=== PATIENT | male | born 1945 | race Caucasian/White ===

== ENCOUNTER 2024-12-01 21:39 | Emergency (ER) | payer OTHER, MEDICARE ==
[~2024-12-01] VITALS: Ht 175.3 cm; Wt 81.8 kg
[2024-12-01 21:51] VITALS: BP 142/62; PULSE 83; RESP 20; TEMP 98.3; O2SAT 97
--- NOTE | 2024-12-01 23:16 | Physician Documentation ---
History of Present Illness ~ Chief Complaint: Foot pain Stated Complaint: FOOT PAIN Time Seen by MD: 23:09 OK to notify your PCP?: Yes Source: patient Mode of Arrival: POV Exam Limitations: no limitations HPI 79-year-old male with left greater toe pain, warmth, swelling that he noticed 2 days ago. He does not remember any injury to the toe but noticed he had what he thought was a corn on the site of his toe so we put some corn ointment on which then subsequently opened up. He does wear open toed sandals and has been outside on their property. The redness started in the toe at the site of the wound and what is spreading up the toe. He does have pain in the MTP and was wondering if this could be gout. Good pulses in foot, good CSM, limited range of motion in the toe. Medication Reconciliation Allergies: Coded Allergies: No Known Allergies (Unverified , 12/01/24) Scheduled Cephalexin*Monohydrate* (Keflex*), 1 CAP PO Q8H Review of Systems All Other Systems at this time: Reviewed and Negative Physical Exam Vital Signs: RN Vital Signs have been reviewed: Yes, Temperature: 98.3, Source: Temporal, Heart Rate: 83, Respiratory Rate: 20, BP: 142/62, Pulse Oximetry: 97, Weight: 81.810 Oxygen Flow Rate: 0 Pulse Oximetry Reflects: adequate oxygenation Physical Exam General: Alert, no apparent distress. HEENT: PERRL, EOMI, no injection, moist mucous membranes. Neck: Full range of motion. Respiratory: Lungs clear, no respiratory distress. Chest: No accessory muscle use. Cardiovascular: Regular rate and rhythm, no murmurs. Gastrointestinal: Soft, nontender, nondistended. Bowels sounds present. Extremities: Decreased range of motion in left greater toe. Edema, erythema, warmth to toe with small open ulceration to the medial aspect of the left greater toe. Decreased range of motion in toto to pain. Redness along 1st metacarpal. Neurologic: Oriented x4. Psychiatric: Normal mood and affect. Skin: Normal color, warm and dry. No edema, no ecchymosis. Progress Results/Orders Reviewed/noted all lab results: Yes Results/Orders Orders - SOL YOON VP LAB Toe(S) (12/01/24 23:10) Completed Orders - SOL YOON VP LAB Toe(S) (12/01/24 23:10) Cephalexin Capsule (Keflex Capsule) (12/01/24 23:20) Vital Signs 12/01/24 21:51 Temp 98.3 Pulse 83 Resp 20 B/P (MAP) 142/62 Pulse Ox 97 O2 Flow Rate 0 EKG/XRAY/CT/US/VASC/MRI Bone/Soft Tissue X-Ray (Ext.) : Additional Comment left toes x-ray as interpreted by me; no joint effusion, no acute fracture, no soft tissue swelling, no dislocation, or foreign body. Medical Decision Making Additional info obtained from: old records Findings 79-year-old male with a wound to the left toe with spreading redness, warmth and edema for the past 2 days. He states that the swelling started at the point of open ulceration and has been spreading up the foot. He does have limited range motion in the MTP and is worried about gout. He has never had gout and does not diabetic. Has limited range of motion in that toe due to pain. Good CSM and good pulses in the foot. I ordered a toe x-ray to rule out septic arthritis, joint effusion or findings consistent with gout. Left toe x-ray showed: no joint effusion, no acute fracture, no soft tissue swelling, no dislocation, or foreign body. This is likely cellulitis stemming from the open ulceration to the medial aspect of the 1st greater toe. The redness is spreading from the site and going upwards toward the foot. I have given a first-time dose of Keflex while here in the department and a prescription for Keflex was sent to his pharmacy. He should see his primary care provider in the next 3 days and return back here for any new or worsening symptoms. General Diff Dx:Considerations: Include: Abrasion, Contusion, Fracture, Hematoma, Neurovascular injury, Open fracture, Sprain Toe Diff Dx:Considerations: Include: Dislocation Departure Disposition: 01 HOME / SELF CARE / HOMELESS Impression: Primary Impression: Cellulitis Condition: Stable Discharge Instructions: Cellulitis Additional Instructions: Please take all antibiotics as prescribed. Follow up with her primary care provider in the next 3 days and return back here for any new or worsening symptoms. Referrals: NO PRIMARY CARE PROVIDER (PCP) Prescriptions Cephalexin*Monohydrate* (Keflex*) 500 Mg Capsule 1 CAP PO Q8H for 10 Days, #30 CAP Prov: SOL YOON 12/01/24 Education Educated: Patient, Family Educated regarding: diagnosis, treatment, prognosis, need for follow up Additional Comment Medical Screen Exam This patient recieved a medical screening examination. After reviewing the individual's medical complaints with presenting symptoms and performing an appropriate physical examination, it was determined that no emergency medical condition is present. This individual is also not a women having contractions. Signature Scribe Signature: No scribe Attestation: Scribed for Sol Yoon by Sol Lloyd NP . 12/02/24 00:11 SOL YOON December 01, 2024 23:16
[2024-12-01] MEDS ORDERED: CEPH-585 PO (23:19)
--- NOTE | 2024-12-02 00:03 | RADIOLOGY REPORT ---
CLINICAL INDICATION: left toe pain, warmth and swelling TECHNIQUE: DI TOE(S) Comparison: None FINDINGS / IMPRESSION: No osseous abnormality identified with no fracture or destructive changes. Joint spaces are with norm al limits. Mild degenerative changes in 1st MTP joint.
[2024-12-02] MEDS: cephalexin 250mg capsule PO ONE (00:36)
== END 2024-12-02 00:35 | disposition home or self-care (01) ==
LOC: ER 21:41
DX: L03.116 Cellulitis of left lower limb (principal)
CPT/HCPCS: 73660; 99283

== ENCOUNTER 2025-04-13 15:48 | Inpatient (IN) | payer OTHER, MEDICARE ==
[~2025-04-13] VITALS: Ht 170.2 cm; Wt 82.2 kg
[2025-04-13 16:22] LABS: UA COLLECTION TYPE CLN CATCH MIDSTREAM
[2025-04-13 16:28] LABS: SQUAMOUS EPITHELIAL CELL,UR FEW /LPF (FEW)
--- NOTE | 2025-04-13 16:44 | Physician Documentation ---
History of Present Illness General Chief Complaint: Blood in Urine Stated Complaint: UTI SYMPTOMS Time Seen by MD: 16:44 OK to notify your PCP?: Yes Source: patient Mode of Arrival: POV Exam Limitations: no limitations History of Present Illness Initial Comments 79-year-old male presents for constant right flank pain for the past 3 days. He has noticed having dark red blood in his urine as well as some accompanying nausea. He denies any vomiting. He is able to keep food and fluids down. He denies any diarrhea or constipation. He does not have a history of any kidney, bladder or prostate issues. reports that he used to have an elevated PSA but that has decreased on repeat testing. He denies any blood thinner use. He denies any known trauma to the right flank. He did take a oxycodone 10 mg this morning which made him drowsy but did not appear to help with the pain. Denies any history of kidney stones. History of exposure to agent orange. Medication Reconciliation Allergies: Coded Allergies: No Known Allergies (Unverified , 04/13/25) Scheduled Finasteride (PROSCAR tablet), 1 TAB PO DAILY, (Reported) Furosemide 40 MG (Lasix), 1 TAB PO DAILY, (Reported) Gabapentin (Neurontin), 1 CAP PO Q8H, (Reported) Omeprazole (Omeprazole), 1 CAP PO BID, (Reported) Oxybutynin Chloride (Oxybutynin Chloride), 1 TAB PO DAILY, (Reported) Potassium Chloride (Klor-Con), 2 TAB PO DAILY, (Reported) Scheduled PRN Pramipexole Di-Hcl (Pramipexole Dihydrochloride), 1 MG PO BID PRN for muscle spasms, (Reported) Review of Systems All Other Systems at this time: Reviewed and Negative Physical Exam Physical Exam Vital Signs: RN Vital Signs have been reviewed: Yes, Temperature: 97.6, Heart Rate: 59, Respiratory Rate: 13, BP: 109/61, Pulse Oximetry: 97, Weight: 82.200 Oxygen Flow Rate: 0 Pulse Oximetry Reflects: adequate oxygenation Physical Exam General: Alert, no apparent distress. HEENT: PERRL, EOMI, no injection, moist mucous membranes. Neck: Full range of motion. Respiratory: Lungs clear, no respiratory distress. Chest: No accessory muscle use. Cardiovascular: Regular rate and rhythm, no murmurs. Gastrointestinal: Soft, nontender, nondistended. Bowels sounds present. Back: No midline tenderness, no CVA tenderness on either side. Extremities: Normal range of motion, no deformity. Neurologic: Oriented x4. Psychiatric: Normal mood and affect. Skin: Normal color, warm and dry. No edema, no ecchymosis. Progress Progress Note 1748: Bladder scanned pt, 807 in bladder. He denies the urge to urinate but was willing to try. was able to urinate 80 mls of brawn turbid urine. Results/Orders Reviewed/noted all lab results: Yes Results/Orders Completed Orders - OHLBARON ROBBINS MD Ua W/Microscopic, Cult If Ind (04/13/25 16:09) Cult Urine + [address] (04/13/25 16:29) Vital Signs 04/13/25 04/13/25 04/13/25 04/13/25 15:56 16:40 17:00 18:08 Temp 97.6 98.8 Pulse 59 66 67 Resp 16 13 14 13 B/P (MAP) 109/61 126/65 (85) 154/80 (104) Pulse Ox 97 96 97 O2 Flow Rate 0 0 0 04/13/25 04/13/25 04/13/25 19:14 20:05 21:34 Pulse 59 68 Resp 16 16 18 B/P (MAP) 170/88 (115) 141/78 (99) Pulse Ox 96 98 O2 Flow Rate 0 Laboratory Tests Test 04/13/25 16:09 04/13/25 17:40 Urine Specimen Description Cln catch midstream Urine Color Brown Urine Clarity Turbid Urine pH Urine Specific Mackey Urine Protein Urine Glucose (UA) Urine Ketones Urine Occult Blood Urine Nitrite Urine Bilirubin Urine Urobilinogen Urine Leukocyte Esterase Urine RBC Tntc Urine WBC 10-20 H Urine Squamous Epithelial Cells Few Urine Bacteria None seen Urine Culture Indicated Indicated Volume Urine Centrifuged 2 ml Urine Comment Low volume White Blood Count 10.1 Red Blood Count 4.42 L Hemoglobin 12.9 L Hematocrit 38.6 L Mean Corpuscular Volume 87.4 Mean Corpuscular Hemoglobin 29.2 Mean Corpuscular Hemoglobin Concent 33.4 Red Cell Distribution Width 13.9 Platelet Count 269 Mean Platelet Volume 8.4 Neutrophils (%) (Auto) 82.9 H Lymphocytes (%) (Auto) 8.2 L Monocytes (%) (Auto) 7.3 Eosinophils (%) (Auto) 1.3 Basophils (%) (Auto) 0.3 Neutrophils # (Auto) 8.4 H Lymphocytes # (Auto) 0.8 L Monocytes # (Auto) 0.7 Eosinophils # (Auto) 0.1 Basophils # (Auto) 0.0 CBC Comment Sodium Level 136 Potassium Level 4.2 Chloride Level 101 Carbon Dioxide Level 29.0 Anion Gap 6 L Blood Urea Nitrogen 15 Creatinine 1.12 H Estimated GFR/1.73 m2 63 BUN/Creatinine Ratio 13.4 Glucose Level 115 H Calcium Level 8.4 L Total Bilirubin 0.3 Aspartate Amino Transf (AST/SGOT) 14 Alanine Aminotransferase (ALT/SGPT) 13 Alkaline Phosphatase 112 Total Protein 7.1 Albumin 3.1 L Globulin 4.0 Albumin/Globulin Ratio 0.8 L Lipase 21 Chemistry Comments Microbiology Date/Time Source Procedure Growth Status 04/13/25 16:29 Urine Clean Catch Midstream Urine Culture - Final MIXED TEZ ISOLATED.... Complete EKG/XRAY/CT/US/VASC/MRI CT : Impression Abdominal/pelvis CT without contrast as interpreted by me shows: No free air, bladder mass present, abnormal bladder wall thickening, enlarged prostate and large bladder. Medical Decision Making Additional info obtained from: old records, family Findings He is having severe right flank pain with blood in the urine. I have ordered a CT of abdomen and pelvis to assess for kidney stone. I have also ordered basic labs to look for any anemia, infection or kidney or liver dysfunction. I have given him Toradol for the pain as well as an IV bolus 1 L. mentions that he has had a history of having chronically low sodium levels and vitamin-B levels. His lab results reveal mild anemia, WBCs normal, sodium normal, kidney function good, and urinalysis shows-significant blood in the urine with WBCs present. They were unable to run a full urinalysis due to the bloody sample. I discussed this case with Dr. Guajardo regarding the lab and urine results and he recommends treating for UTI with keflex. Keflex ordered. I suspect that he has a urinary tract infection so I treated him with Keflex. He reports not feeling the urge to urinate. I personally did a bladder scan with an average of 807 mL in the bladder. I had him stand up to urinate with only 80 mL of urine output. Patient expresses relief of pain down to a 4/10 in his right flank after the administration of Toradol. I offered further pain medications but he declines at this time. 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 I discussed this case with Dr. Malone regarding the results of the CT and he recommends a Glover catheter with bladder irrigation. I notified the patient and his regarding the CT results and the next steps in his plan of care. I handed off the care of this patient to Dr. Malone as it was the end of my shift. Differential Diagnosis Cholelithiasis, muscle strain, kidney stone, urinary obstruction, pyelonephritis. Departure Disposition: ADMITTED INPATIENT Impression: Primary Impression: Bladder carcinoma Additional Impressions: Blood in urine Flank pain Condition: Fair Referrals: NO PRIMARY CARE PROVIDER (PCP) Additional Comment Transfer of Care: Transfer of care to Dr. Malone Medical Screen Exam This patient recieved a medical screening examination. After reviewing the individual's medical complaints with presenting symptoms and performing an appropriate physical examination, it was determined that no immediate life-threatening emergency medical condition is present. This individual is also not a women having contractions. Additional Comment Date: Apr 13, 2025 Time: 21:17 Additional note by Mani Malone, DO: I took over the care of this patient from previous physician. I reviewed any previous notes available, obtain my own history, review of systems and physical examination was performed by myself. Despite of extensive irrigation, the gentleman continues to have significant amount of hematuria. He will need to be admitted for continued bladder irrigation and nonemergent urology consultation in the morning when he is on the inpatient curtis. Plan was discussed with the the patient and the , they agree. Signature Scribe Signature: No scribe Attestation: The note accurately reflects work and decisions made by me.Baron Guajardo MD 04/15/25 09:53 Scribed for Sol Hudson [employer] Specialist by Sol Lloyd NP . 04/13/25 19:03 Parts of this note were created using [employer] voice recognition software program. While efforts were made to correct any mistakes made by this voice recognition software program, nonsensical phrases may remain in this note. In addition, there may be errors and syntax, grammar, content and spelling. Date: Apr 13, 2025 Time: 21:18 This note accurately reflects clinical decisions, work performed by myself, Mani Malone DO [facility],BARON Rosales MD Apr 13, 2025 16:44 SOL HUDSON Apr 13, 2025 17:11 MANI MALONE DO Apr 13, 2025 21:18
[2025-04-13 17:58] LABS: MEAN PLATELET VOLUME 8.4 FL (7.4-10.4); RED CELL DISTRIBUTION WIDTH 13.9 % (11.5-14.5)
[2025-04-13] MEDS: ketorolac trometh 15mg/ml vial 15 MG/ML ML IV ONE (18:00)
[2025-04-13] MEDS: normal saline 1000ML IV soln IVB ONE (18:00)
[2025-04-13 18:16] LABS: CREATININE 1.12 MG/DL (0.60-1.10); TOTAL CARBON DIOXIDE 29.0 MMOL/L (24-32); eCRCL 51 ML/MIN; eGFR 63 ML/MIN
--- NOTE | 2025-04-13 18:33 | RADIOLOGY REPORT ---
EXAM: CT CT ABDOMEN PELVIS HISTORY: vibha blood in urine, and right flank pain TECHNIQUE: Volumetric multidetector CT images of the abdomen and pelvis were obtained after the administration of intravenous contrast. All CT scans at this facility use dose modulation, iterative reconstruction, and/or weight based dosing when appropriate to reduce radiation dose to as low as reasonably achievable. COMPARISON: None FINDINGS: [LOWER CHEST]: Large sliding hiatal hernia with the majority of the stomach in the left posterior mediastinum causing adjacent atelectasis of the left lower lobe. Coronary artery calcifications. [LIVER]: Normal hepatic size without suspicious focal lesion. [GALLBLADDER AND BILIARY TREE]: No cholelithiasis. [SPLEEN]: Unremarkable. [PANCREAS]: Unremarkable. [ADRENAL GLANDS]: Unremarkable [KIDNEYS]: No hydronephrosis. No nephroureterolithiasis. [BLADDER]: Significant abnormal right lateral bladder wall mass with spiculation and increased density and adjacent abnormal bladder wall thickening. Mass measures 4.8 x 3 cm. Imaging finding compatible with bladder carcinoma. [REPRODUCTIVE ORGANS]: Mild to moderate prostatomegaly. [BOWEL/MESENTERY]: As above, large sliding hernia of the stomach. No CT evidence of bowel obstruction. [ASCITES]: Absent [LYMPHADENOPATHY]: Right iliac chain lymph node measuring 0.8 cm [VASCULATURE]: No aneurysmal dilatation. [ABDOMINAL WALL]: Fat containing right inguinal hernia [MUSCULOSKELETAL]: No acute fracture or aggressive focal osseous lesion. Multifocal degenerative change of the visualized spine. trace anterolisthesis L4 over L5 IMPRESSION: 1. Abnormal right lateral bladder wall mass with spiculation and increased density and adjacent abnormal bladder wall thickening. 2. Mass measures 4.8 x 3 cm. 3. Imaging finding compatible with bladder carcinoma. 4. Large sliding hiatal hernia with the majority of the stomach in the left posterior mediastinum causing adjacent atelectasis of the left lower lobe. 5. Right iliac chain lymph node measuring 0.8 cm
[2025-04-13] MEDS: LidoCAINE 2% Topical Jelly 11mL syringe (UROJET) TOP ONE (19:09)
[2025-04-13] MEDS ORDERED: magnesium hydroxide 30ml (MOM) UD suspension PO PRN (22:10)
[2025-04-13] MEDS ORDERED: magnesium sulf-water 4G/100mL 100 ML IV PRN (22:10)
[2025-04-13] MEDS ORDERED: magnesium Cl slow-release 64mg tablet PO PRN (22:10)
[2025-04-13] MEDS ORDERED: potassium Cl 40MEQ/1/2NS 520ml 520 ML IV PRN (22:10)
[2025-04-13] MEDS ORDERED: ondansetron/PF 4mg/2ml inj IV PRN (22:10)
[2025-04-13] MEDS ORDERED: magnesium sulf-water 2g/50mL 50 ML IV PRN (22:10)
[2025-04-13] MEDS ORDERED: potassium Cl 20 mEq SR tablet PO PRN ×2 (22:10)
--- NOTE | 2025-04-13 22:19 | HISTORY AND PHYSICAL-Residence ---
History & Physical Providers to CC Resident Creating Document: MARTHA WHITTEN RES ~ History of Present Illness Primary Medical Doctor: SAMIRA Reason for Admit\Complaint: Hematuria History of Present Illness 79-year-old male patient presents to the hospital with his with complaints of worsening hematuria starting today in the morning. The patient has had ongoing mild hematuria withn the last couple of days but today in the morning it had worsened with increased output of dark urine with associated right-sided flank pain and hence, came into the hospital for further evaluation. The patient has been having on and off right-sided back pain over the last few months, that worsened with ambulation but did not wake him up from sleep. He was considered to have a musculoskeletal pathology and further diagnostic study was not performed. He was previously evaluated with a PSA that was elevated but had been decreasing in trend. He has never previously had hematuria. Denies any significant loss of weight or change in appetite. ER course- patient had difficulty urinating. Bladder scan revealed 807ml in the bladder. Failed to pass urine even on strianing. After the CT scan results returned, Glover's catheter was placed with continuous bladder irrigation. The Glover's catheter has been draining bloody urine. Pain controlled with torodol. Allergies: Coded Allergies: No Known Allergies (Unverified , 04/13/25) Home Medications Home Medications Active Past Medical History Past Medical History BPH GERD Hiatal hernia Parkinson's disease Psoriasis Past Surgical History Surgical History Comment B/L inguinal hernia repair Past Social History Social History Comment Smoked for six years, last quit smoking in 1970s. Smoked one pack/day. Drinks 1-2 beers per week. Denies any other illicit drug abuse. Lives at home with his . Uses a cane occasionally to walk since his back pain has begun. Worked in the [employer] for [employer]. No active radiation exposure. ROS Constitutional: Reports: no symptoms reported Eyes: Reports: no symptoms reported ENT: Reports: no symptoms reported Respiratory: Reports: no symptoms reported Cardiovascular: Reports: no symptoms reported Gastrointestinal: Reports: no symptoms reported Genitourinary: Reports: flank pain, hematuria, decreased urine output Male Genitalia: Reports: no symptoms reported Neurological: Reports: no symptoms reported Musculoskeletal: Reports: back pain Integumentary: Reports: rash Allergic/Immunologic: Reports: no symptoms reported Hematologic/Lymphatic: Reports: no symptoms reported Endocrine: Reports: no symptoms reported Psychiatric: Reports: no symptoms reported Exam Vitals: Vital Signs Date Time Temp Pulse Resp B/P (MAP) Pulse Ox O2 Delivery O2 Flow Rate FiO2 04/13/25 21:34 68 18 141/78 (99) 98 04/13/25 19:14 0 04/13/25 17:00 98.8 General: General: Awake and Alert, no acute distress. Foleys catheter in place HEENT: Conjunctiva pale, Sclera clear, Mucus Membranes moist. Resp: Unlabored. Lungs clear to auscultation bilaterally. Heart: Regular Rate and rhythm, normal S1 and S2, pansystolic grade 2-3/5 murmur heard in the mitral area Abdomen: MIld distension, soft and non tender no organomegaly. No flank tenderness Extremities: No cyanosis,clubbing or edema. Skin: Warm and Dry. Mild pruritic papular rash noted on the hands and on the back Diagnostic Data Last Recorded Lab Results: 04/14/2545804/14/25458 Advance Care Planning Advanced Care plannin - 30 Minutes Additional Plan 1. Hematuria secondary to bladder mass: Newly diagnosed 4.8 x 3 cm bladder mass on the right lateral bladder wall. Associated right iliac chain lymphadenopathy No associated hydronephrosis Glover's catheter with CBI in place; continue monitoring urine output Recommend Urology consult in a.m. 2. JANEE on CKD stage 3: Baseline unknown Continue CBI and IVF with rate of 100 cc/hour 3. Back pain: Likely secondary to anterolisthesis/degenerative disc disease Not secondary to metastasis No aggressive focal lesion noted on the spine Pain management with morphine 4. Normocytic and normochromic anemia: Likely secondary to the bladder mass Follow iron studies 5. BPH: Restart home medications after reconciliation Parkinson's disease- continue home medication of pramipexole 6. Large hiatal hernia: CTA abdomen reveals large sliding hiatal hernia with majority of the stomach in the left posterior mediastinum causing left lower lobe atelectasis Outpatient evaluation for surgery 7. New murmur: Follow echocardiogram Lines: PIV Code status: Full code DVT prophyalxis: SCD's GI prophylaxis: Protnonix Diet: Regular Deepshaylajatrey Vedantam PGY3, Internal medicine resident Date of Service: Apr 13, 2025 Billing Provider: RANDEE DEUTSCH MD Addendum Attestation I agree with the residents assessment and plan as below: Patient admitted with hematuria for the past few days Plan: bladder irrigation urologyconsult follow final CT read follow urine cultures mIVF CCT 56 min using HIPPA compliant A/V technology MARTHA WHITTEN, RES Apr 13, 2025 22:19 RANDEE DEUTSCH MD Apr 14, 2025 08:46
--- NOTE | 2025-04-13 22:33 | RADIOLOGY REPORT ---
CHEST RADIOGRAPH Indication: SOB Technique: Single frontal view of the chest was obtained COMPARISON: None FINDINGS: Lines and Tubes: None Lungs: Clear Pleura: No effusion. No pneumothorax. Cardiomediastinal contours: Cardiomegaly. Bones: Unremarkable IMPRESSION: 1. Cardiomegaly.
[2025-04-13] MEDS: normal saline 1000ml 1,000 ML IV SCH (22:49)
[2025-04-13 23:38] LABS: APTT 30 SECONDS (22-32); INR 1.0 INR
[2025-04-14] VITALS (20 sets, daily range): BP systolic 111–154; BP diastolic 55–78; PULSE 62–105; RESP 11–18; TEMP 97.6–98.1; O2SAT 93–97
[2025-04-14 05:35] LABS: MEAN PLATELET VOLUME 8.7 FL (7.4-10.4); RED CELL DISTRIBUTION WIDTH 13.8 % (11.5-14.5)
[2025-04-14 06:14] LABS: CHOL/HDL RATIO 5.3 (0.00-4.99); CREATININE 1.08 MG/DL (0.60-1.10); LDL CHOLESTEROL 92 MG/DL (50-100); TOTAL CARBON DIOXIDE 28.0 MMOL/L (24-32); eCRCL 53 ML/MIN; eGFR 66 ML/MIN
[2025-04-14] MEDS: K and/or MAG REPLACEMENT MC SCH (08:00)
[2025-04-14] MEDS: docusate sod 100mg capsule PO SCH (08:00)
[2025-04-14] MEDS ORDERED: ondansetron/PF 4mg/2ml inj IV PRN (08:50)
[2025-04-14] MEDS: ringers solution, lacted 1,000 ML IV SCH (08:50)
[2025-04-14] MEDS ORDERED: labetalol 20mg/4ml (5mg/ml) syringe IV PRN (08:50)
[2025-04-14] MEDS ORDERED: hydrALAZINE 20mg/ml inj. IV PRN (08:50)
[2025-04-14] MEDS ORDERED: fentaNYL/PF 50MCG/1 ML 2ML syringe IV PRN ×2 (08:50)
[2025-04-14] MEDS ORDERED: morphine 4 MG/ML inj SYRINge IV PRN ×3 (08:50→12:33)
--- NOTE | 2025-04-14 10:02 | CONSULTATION REPORT ---
History of Present Illness Providers to CC ~ Reason for Admit\Admit Dx: Hematuria Refering MD: SAMIRA History of Present Illness 79-year-old white male presenting with gross hematuria. CT images demonstrate a 5 cm posterior bladder wall mass and a very large bladder. Continuous bladder irrigation has been ongoing but the patient continues demonstrating intermittent gross hematuria. Serum creatinine is completely normal. Allergies: Coded Allergies: No Known Allergies (Unverified , 04/13/25) Home Medications Home Medications Active Past Medical History Medical History Comment The patient does not report any chronic medical conditions. Past Surgical History Surgical History Comment No genitourinary surgeries. Past Family History Family History Comment Noncontributory. Past Social History Social History Comment Denies substance abuse. Physical Exam Last Vital Signs Recorded: RN Vital Signs have been reviewed: Yes, Temperature: 97.7, Source: Oral, Heart Rate: 69, Respiratory Rate: 18, BP: 132/55, Pulse Oximetry: 96, Weight: 82.200 General Appearance: alert, no apparent distress EENT: PERRL/EOMI Neck: full range of motion Respiratory: no respiratory distress Chest: no accessory muscle use Cardiovascular: no edema, no JVD Gastrointestinal: normal palpation, non-tender Genitalia: normal Genitalia Three way catheter draining light pink urine at a slow drip. Rectal: deferred (A) Back: no CVA tenderness Extremities: normal range of motion Neurologic: oriented x4 Psychiatric: normal mood/affect Skin: normal color, warm/dry Lymphatic: no adenopathy Review of Systems ROS ROS Comments: Normal 12 system Results Diagram Lab Result Diagram: 04/14/25 0459 04/14/25 0459 Assessment/Plan Problems/Diagnosis: (1) Bladder neoplasm of uncertain malignant potential Assessment & Plan: The patient has a large bleeding bladder mass. Due to such we will perform a trans urethral resection of the bladder tumor with the main goal of obtaining hemostasis. Tissue will be sent for final pathologic review. Consideration for stent placement will be made should his ureteral orifices be involved. The risks and benefits associated with this procedure were discussed in detail and the patient agreed to proceed with surgery. GUY DIALLO MD Apr 14, 2025 10:02
--- NOTE | 2025-04-14 10:09 | OPERATIVE REPORT ---
Operative Report Providers to ~ Date of Procedure: Apr 14, 2025 Pre-Operative Diagnosis: Bladder mass Post-Operative Diagnosis Same Procedure Performed 1. Trans urethral resection of bladder mass. 2. Level 22 modifier for procedure time greater than 50% of expected due to extensive involvement with a large tumor and innumerable bladder diverticula. Surgeon: Gregorio Diallo MD Quality Rep None Anesthesiologist: Dallas Vee Type of Anesthesia: General Findings: The patient had innumerable bladder diverticula and severe bladder trabeculations. He had a large bladder tumor at the right posterior bladder wall which was quite sessile. Much of the tumor invaded into some of these diverticula and successful fulguration and removal of the tumor burden was achieved. There was clear invasion grossly of tumor material into detrusor fibers. Complications None Estimated Blood Loss: Minimal. Specimen Removed: Bladder tumor fragments. Description of Procedure: The patient was brought into the operative room where he received general anesthesia. While in dorsal lithotomy he was prepped and draped in sterile fashion. We entered the urethra with a 26 Grenadian continuous flow resectoscope and appreciated an obstructive prostate with enlarged lateral lobes which pushed into the bladder itself circumferentially. Within the bladder we observed a capacious bladder with a large sessile mass at the right lateral wall extending onto the posterior bladder wall. Carefully this tumor was resected down to the level of the detrusor. Deep biopsies into the detrusor however were avoided in order to prevent perforation of his bladder. Careful resection of tumor and ablation of bladder diverticula was performed in order to both remove tumor and prevent perforation of the patient's bladder. Gross tumor in contact with detrusor fibers was appreciated at multiple locations especially interfaces between the detrusor and bladder diverticula. Once all malignant tissue was successfully treated fulguration of his resection bed was performed in order to attain complete hemostasis. Tumor fragments were then evacuated from the bladder and sent for pathologic analysis. We removed our resectoscope and placed an 18 Grenadian coude catheter with 10 mL instilled into the retaining balloon and his drainage appeared crystal clear. GREGORIO DIALLO MD Apr 14, 2025 10:09
[2025-04-14] MEDS ORDERED: dexamethasone sod phosphate 4mg/ml inj. ONE (10:26)
[2025-04-14] MEDS ORDERED: rocuronium 10mg/ml inj IV ONE (10:26)
[2025-04-14] MEDS ORDERED: propofol inj 20 ML IV ONE (10:26)
[2025-04-14] MEDS ORDERED: ondansetron/PF 4mg/2ml inj ONE (10:26)
[2025-04-14] MEDS ORDERED: fentaNYL/PF 50MCG/1 ML 2ML syringe ONE ×2 (10:26→12:32)
[2025-04-14] MEDS ORDERED: ePHEDrine 50MG/ML INJ. ONE (10:40)
[2025-04-14] MEDS ORDERED: LIDOcaine 2% (20mg/ml) 5ml vial ONE (11:00)
[2025-04-14] MEDS ORDERED: iohexol 300mg/ml 100ml inj. ONE (11:16)
[2025-04-14] MEDS ORDERED: OXYB5TAB21 PO ×2 (11:55→12:19)
[2025-04-14] MEDS ORDERED: POTA-192 PO ×2 (11:55→12:19)
[2025-04-14] MEDS ORDERED: FURO-149 PO (11:55)
[2025-04-14] MEDS ORDERED: OMEP20TA23 PO (11:55)
[2025-04-14] MEDS ORDERED: PRAM1TAB6 PO ×2 (11:55→12:19)
[2025-04-14] MEDS ORDERED: FINA5TAB11 PO ×2 (11:55→12:19)
[2025-04-14] MEDS ORDERED: GABA-530 PO (11:55)
[2025-04-14] MEDS ORDERED: OMEP40CA21 PO (12:06)
[2025-04-14] MEDS ORDERED: GABA300C PO (12:19)
[2025-04-14] MEDS ORDERED: OMEP20CA16 PO (12:19)
[2025-04-14] MEDS ORDERED: FURO40TA4 PO (12:19)
[2025-04-14] MEDS ORDERED: HYDROcodone/acetaminophen 5mg/325mg tablet PO PRN (13:15)
--- NOTE | 2025-04-14 15:35 | PROGRESS NOTE- Residence ---
Progress Note - Resident Providers to CC Resident Creating Document: IRVIN BURNS, RES ~ Antibiotic Timeout Antibiotic Ordered?: No Subjective Patient was seen and examined bedside, reports she had a pack pain in the morning but now its fine, Patient underwent transuretheral resection of bladder with Dr. Stanton, Patient has been taking Lasix since couple of years, but he do not know for the reason for taking Lasix, denies any history of heart failure. Patient told he takes for leg swelling In addition to that told PSA was high 3 years ago, and 2 months ago it was normal also told he takes finasteride and flowmax for BPH. Apart from that also told he takes codeine for arthritis and nuvigil for daytime sleepiness. Objective Vital Signs Date Time Temp Pulse Resp B/P (MAP) Pulse Ox O2 Delivery O2 Flow Rate FiO2 04/14/25 13:25 62 13 145/65 (91) 95 Room Air 0.0 04/14/25 13:01 97.5 Result Diagram: 04/14/25 0459 04/14/25 0459 General: Awake and Alert, no acute distress. Foleys catheter in place HEENT: Conjunctiva pale, Sclera clear, Mucus Membranes moist. Resp: Unlabored. Lungs clear to auscultation bilaterally. Heart: Regular Rate and rhythm, normal S1 and S2, murmur noted in mitral area Abdomen: MIld distension, soft and non tender no organomegaly. No flank tenderness Extremities: No cyanosis,clubbing or edema. MSK: No joint deformities noted Skin: Warm and Dry. Mild pruritic papular rash noted on the hands and on the back Coagulation Studies Laboratory Tests Test 04/13/25 23:18 Prothrombin Time 10.4 SECONDS (9.0-12.0) INR International Normalized Ratio 1.0 INR Activated Partial Thromboplast Time 30 SECONDS (22-32) Coagulation Comments Advance Care Planning Advanced Care plannin - 30 Minutes Plan Plan Additional Plan Hematuria secondary to bladder mass Trans urethral resection of bladder mass s/p day 1 Newly diagnosed 4.8 x 3 cm bladder mass on the right lateral bladder wall. Associated right iliac chain lymphadenopathy No associated hydronephrosis Glover's catheter in place; continue monitoring urine output H&H 12.5 and 38 Continue monitoring H&H Consulted Dr. Stanton today in the morning, and patient underwent Transuretheral resection of bladder mass. Acute Kidney Injury Resolved Baseline unknown Creatinine on POA 1.12 Today Creatinine is 1.03 Bening Prostatic Hyperplasic told PSA was high 3 years ago, and 2 months ago it was normal also told patient takes finasteride and flowmax for BPH Continued Finasteride Back pain: Likely secondary to anterolisthesis/degenerative disc disease Ct Abdomen Pelvis:No acute fracture or aggressive focal osseous lesion. Multifocal degenerative change of the visualized spine. trace anterolisthesis L4 over L5 Pain management with morphine He denies back pain today Normocytic and normochromic anemia: Likely secondary to the bladder mass Ferritin normal, iron low, Transferin awaiting Restless Leg Syndrome Continue Pramipexole Ferritin normal, iron low and transferin awaiting. Large hiatal hernia: CTA abdomen reveals large sliding hiatal hernia with majority of the stomach in the left posterior mediastinum causing left lower lobe atelectasis Outpatient evaluation for surgery New murmur: Follow echocardiogram Echo shows RSVP 35 LVEF is 60-65% Patient would need to follow up with [employer] [facility]. Lines: PIV Code status: Full code DVT prophyalxis: SCD's GI prophylaxis: Protnonix Diet: Regular Disposition: Will Continue to monitor patient bleeding, discharge plan need to discussed with urologist Irvin Burns PGY 1 IM Date of Service: Apr 14, 2025 Billing Provider: EDDIE CLIFTON MD Common Visit Codes: 37282-[id number] INP/OBS CARE(HIGH) IRVIN BURNS, RES Apr 14, 2025 15:35 EDDIE CLIFTON MD Apr 15, 2025 06:29
[2025-04-14] MEDS: mag hydrox/Alum hydrox/simeth 30ml oral suspension PO PRN (16:41)
--- NOTE | 2025-04-14 18:42 | CARDIOLOGY REPORT ---
APPROVED REPORT EXAM: Comprehensive 2D, Doppler, and color-flow Echocardiogram. Patient Location: [facility]5 B Heart Rate: 60's bpm Rhythm: SINUS Indications MURMUR Figure Clerk: NONE Previous echo: NONE 2D Dimensions RVDd 3.7 cm IVSd 1.0 (0.7-1.1cm) LVDd 3.2 cm PWd 1.0 (0.7-1.1cm) IVSs 1.2 (0.8-1.2cm) LVDs 2.2 (2.5-4.0cm) PWs 1.2 (0.8-1.2cm) LVOT Diameter 1.95 (1.8-2.4cm) LVEF(%) 60.2 (>50%) FS (%) 31.1 % SV 24.6 ml CO 1.6 L/min M-Mode Dimensions Left Atrium(MM) 4.63 (2.5-4.0cm) Aortic Root 3.50 (2.2-3.7cm) Aortic Cusp Exc 1.95 (1.5-2.0cm) Aortic Valve AoV Peak Anthony. 180.6 cm/s AoV VTI 38.4 cm AO Peak GR. 13.0 mmHg AO Mean GR. 7 mmHg LVOT VTI 27.22 cm LVOT Peak Anthony. 112.4 cm/s RODDY(VTI)/BSA 2.12 cm2/m2 RODDY (VTI) 2.12 cm2 AV DI 0.71 % Mitral Valve MV E Velocity 104.8 cm/s MV Peak Gr. 6 mmHg MV DECEL TIME 224 ms MV A Velocity 97.9 cm/s MV PHT 72 ms E/A Ratio 1.1 MVA (PHT) 3.06 cm2 MV VMax 123.3 cm/s TDI Lateral E' P. V 9.02 cm/s E/Lateral E' 11.6 Tricuspid Valve TR P. Velocity 250 cm/s RAP ESTIMATE 10 mmHg TR Peak Gr. 25 mmHg RVSP 35 mmHg LEFT VENTRICLE Normal LV size and wall thickness. Overall systolic function is normal. LVEF is 60-65%. RIGHT VENTRICLE RV is mildly dilated with normal function. Elevated right heart pressures with an RVSP of 35 mmHg. ATRIA Left atrium is mildly dilated. AORTIC VALVE Trileaflet AV appears mildly sclerotic without stenosis. No insufficiency. MITRAL VALVE Mild MV annular calcification without stenosis. Trace regurgitation. TRICUSPID VALVE TV appears structurally normal with mild regurgitation. PULMONIC VALVE Normal PV without stenosis, physiologic insufficiency. GREAT VESSELS The aortic root is normal in size. PERICARDIUM Normal pericardium. No effusion. Other Information Study Quality: Adequate Conclusion Normal LV size and wall thickness. Overall systolic function is normal. LVEF is 60-65%. RV is mildly dilated with normal function. Elevated right heart pressures with an RVSP of 35 mmHg. Left atrium is mildly dilated. Trileaflet AV appears mildly sclerotic without stenosis. No insufficiency. Mild MV annular calcification without stenosis. Trace regurgitation. TV appears structurally normal with mild regurgitation. Normal pericardium. No effusion.
--- NOTE | 2025-04-15 04:27 | ELECTROCARDIOGRAPH REPORT ---
[facility] Test Date: 2025-04-14 Test Time: 09:33:31 Pat Name: OSMANI FIORE Department: ORTHO/NEURO Room: ORTHO [facility] Gender: M Clams[employer] Operator: : 1945 Requested By: GUY DIALLO Order Number: [id number] Reading MD: Dr. Alivia Jhaveri Measurements Intervals [place] Rate: 66 P: 43 OK: 225 QRS: 16 QRSD: 96 T: 36 QT: 413 QTc: 433 Interpretive Statements Sinus rhythm Prolonged OK interval Borderline low voltage, extremity leads Electronically Signed On 04-15-2025 7:12:[address] Alivia Jhaveri Please click the below link to view image of tracing.
[2025-04-15 05:46] LABS: MEAN PLATELET VOLUME 8.5 FL (7.4-10.4); RED CELL DISTRIBUTION WIDTH 13.6 % (11.5-14.5)
[2025-04-15 06:00] VITALS: BP 119/51; PULSE 76; RESP 16; TEMP 97.2; O2SAT 92
[2025-04-15 06:07] LABS: CREATININE 0.94 MG/DL (0.60-1.10); TOTAL CARBON DIOXIDE 26.7 MMOL/L (24-32); eCRCL 61 ML/MIN; eGFR 78 ML/MIN
[2025-04-15 09:12] VITALS: RESP 18; O2SAT 97
[2025-04-15 09:24] VITALS: BP 105/47; PULSE 77; RESP 18; TEMP 97.4; O2SAT 97
[2025-04-15 10:00] VITALS: BP 98/44; PULSE 78; RESP 14; TEMP 97.3; O2SAT 95
--- NOTE | 2025-04-15 18:17 | DISCHARGE SUMMARY-Residence ---
Discharge Summary Providers to CC Resident Creating Document: HILLARY WING RES ~ Discharge Summary Admission Diagnosis: Bladder mass Hospital Course DATE OF ADMISSION: 04/13/2025 DATE OF DISCHARGE: 04/15/[address]: 1. Abnormal right lateral bladder wall mass with spiculation and increased density and adjacent abnormal bladder wall thickening. 2. Mass measures 4.8 x 3 cm. 3. Imaging finding compatible with bladder carcinoma. 4. Large sliding hiatal hernia with the majority of the stomach in the left p osterior mediastinum causing adjacent atelectasis of the left lower lobe. 5. Right iliac chain lymph node measuring 0.8 cm Chest x-ray: Cardiomegaly. Echocardiogram: Normal LV size and wall thickness. Overall systolic function is normal. LVEF is 60-65%. RV is mildly dilated with normal function. Elevated right heart pressures with an RVSP of 35 mmHg. Left atrium is mildly dilated. Trileaflet AV appears mildly sclerotic without stenosis. No insufficiency. Mild MV annular calcification without stenosis. Trace regurgitation. TV appears structurally normal with mild regurgitation. Normal pericardium. No effusion. Laboratory Tests Test 04/13/25 23:18 04/14/25 04:59 04/14/25 09:20 04/15/25 05:13 Prothrombin Time 10.4 SECONDS INR International Normalized Ratio 1.0 INR Activated Partial Thromboplast Time 30 SECONDS Coagulation Comments White Blood Count 9.4 X10'3 12.7 X10'3 Red Blood Count 4.34 X10'6 4.07 X10'6 Hemoglobin 12.5 g/dl 12.0 g/dl Hematocrit 38.0 % 35.5 % Mean Corpuscular Volume 87.5 FL 87.2 FL Mean Corpuscular Hemoglobin 28.9 PG 29.4 PG Mean Corpuscular Hemoglobin Concent 33.0 g/dL 33.7 g/dL Red Cell Distribution Width 13.8 % 13.6 % Platelet Count 254 X10'3 264 X10'3 Mean Platelet Volume 8.7 FL 8.5 FL Neutrophils (%) (Auto) 73.3 % 86.7 % Lymphocytes (%) (Auto) 12.1 % 7.2 % Monocytes (%) (Auto) 10.2 % 6.0 % Eosinophils (%) (Auto) 4.1 % 0 % Basophils (%) (Auto) 0.3 % 0.1 % Neutrophils # (Auto) 6.9 X10'3 11.0 X10'3 Lymphocytes # (Auto) 1.1 X10'3 0.9 X10'3 Monocytes # (Auto) 1.0 X10'3 0.8 X10'3 Eosinophils # (Auto) 0.4 X10'3 0.0 X10'3 Basophils # (Auto) 0.0 X10'3 0.0 X10'3 CBC Comment Sodium Level 136 MMOL/L 135 MMOL/L Potassium Level 4.3 MMOL/L 4.3 MMOL/L Chloride Level 102 MMOL/L 103 MMOL/L Carbon Dioxide Level 28.0 MMOL/L 26.7 MMOL/L Anion Gap 6 5 Blood Urea Nitrogen 17 MG/DL 15 MG/DL Creatinine 1.08 MG/DL 0.94 MG/DL Estimated GFR/1.73 m2 66 ML/MIN 78 ML/MIN BUN/Creatinine Ratio 15.7 16.0 Glucose Level 102 MG/DL 114 MG/DL Hemoglobin A1c 5.9 % Calcium Level 8.1 MG/DL 8.1 MG/DL Magnesium Level 2.1 MG/DL 2.2 MG/DL Iron Level 31 UG/DL Ferritin 65 NG/ML Albumin 2.7 G/DL 2.5 G/DL Triglycerides Level 127 MG/DL Cholesterol Level 148 MG/DL LDL Cholesterol 92 MG/DL HDL Cholesterol 28 MG/DL Cholesterol/HDL Ratio 5.3 Chemistry Comments Glucometer 103 mg/dl Discharge Diagnosis\\Comment: Hematuria secondary to bladder mass, possibly malignant neoplasm s/p Trans urethral resection of bladder mass Acute Kidney Injury Resolved, secondary to post renal obstruction Bening Prostatic Hyperplasic Chronic back pain Iron-deficiency anemia Restless Leg Syndrome Large hiatal hernia Operations\\Procedures: Trans urethral resection of bladder mass. Consultants: Urology Complications: None Condition on DC: Stable Continued Medications: Finasteride (PROSCAR tablet) 5 Mg Tablet 1 TAB PO DAILY for 30 Days, #30 TAB 0 Refills Furosemide 40 MG (Lasix) 40 Mg Tablet 1 TAB PO DAILY for 30 Days, #30 TAB Gabapentin (Neurontin) 300 Mg Capsule 1 CAP PO Q8H for 30 Days, #90 CAP 0 Refills Omeprazole (Omeprazole) 20 Mg Capsule.dr 1 CAP PO BID for 30 Days, #30 CAP 0 Refills Oxybutynin Chloride (Oxybutynin Chloride) 5 Mg Tablet 1 TAB PO DAILY for urinary discomfort for 30 Days, #60 TAB 0 Refills Potassium Chloride (Klor-Con) 10 Meq Tab.prt.sr 2 TAB PO DAILY for 30 Days, #30 TAB Pramipexole Di-Hcl (Pramipexole Dihydrochloride) 1 Mg Tablet 1 MG PO BID PRN for muscle spasms, TAB Discharge Summary: History of present illness Patient was admitted with the following HPI:" 79-year-old male patient presents to the hospital with his with complaints of worsening hematuria starting today in the morning. The patient has had ongoing mild hematuria withn the last couple of days but today in the morning it had worsened with increased output of dark urine with associated right-sided flank pain and hence, came into the hospital for further evaluation. The patient has been having on and off right- sided back pain over the last few months, that worsened with ambulation but did not wake him up from sleep. He was considered to have a musculoskeletal pathology and further diagnostic study was not performed. He was previously evaluated with a PSA that was elevated but had been decreasing in trend. He has never previously had hematuria. Denies any significant loss of weight or change in appetite. ER course- patient had difficulty urinating. Bladder scan revealed 807ml in the bladder. Failed to pass urine even on strianing. After the CT scan results returned, Glover's catheter was placed with continuous bladder irrigation. The Glover's catheter has been draining bloody urine. Pain controlled with torodol." Hospital course 79-year-old male patient was admitted due to hematuria and a newly diagnosed bladder mass. He underwent a transurethral resection of the bladder mass performed by Dr. Stanton. The postoperative discharge was uncomplicated, and the hematuria decreased significantly after the procedure, while on continuous bladder irrigation. There was also a postrenal acute kidney injury, which has now resolved. Today, the patient exhibits minimal hematuria, denies any pain, and is tolerating an oral diet. He is stable and ready for discharge with a follow-up appointment scheduled with Urology. Discharge physical exam General: Awake and Alert, no acute distress. Foleys catheter in place with pink color. HEENT: Conjunctiva pale, Sclera clear, Mucus Membranes moist. Resp: Unlabored. Lungs clear to auscultation bilaterally. Heart: Regular Rate and rhythm, normal S1 and S2, systolic 2/5 murmur heard in the mitral area Abdomen: Mild distension, soft and non tender no organomegaly. No flank tenderness Extremities: No cyanosis,clubbing or edema. Skin: Warm and Dry. Discharge medications Home medication Discharge instructions Follow-up with your primary care physician in 1-2 weeks Follow-up with Dr. Stanton outpatient. You will be contacted by his office ([phone]) Continue to use the Glover catheter until urology follow-up Continue home medication Drink plenty of water Come back in case of increasing blood in your urine, fever, increasing pain, vomiting or any other concerning symptoms *Problems/Diagnosis: (1) Hematuria Status: Acute (2) Bladder neoplasm of uncertain malignant potential Status: Acute (3) Acute kidney injury Status: Resolved (4) BPH (benign prostatic hyperplasia) Status: Chronic (5) Iron deficiency anemia Status: Chronic (6) Restless leg syndrome due to iron deficiency anemia Status: Chronic (7) Flank pain Status: Acute Total Time Spent on D/C: > 30 Minutes Date of Service: Apr 15, 2025 Billing Provider: EDDIE CLIFTON MD Common Visit Codes: 73964-KLV/[id number] DISCH DAY >30min Problem Qualifiers (1) Hematuria: Hematuria type: gross Qualified Codes: R31.0 - Gross hematuria HILLARY WING, SHARON Apr 15, 2025 18:16 EDDIE CLIFTON MD Apr 16, 2025 07:44
== END 2025-04-15 16:45 | disposition home or self-care (01) | DRG 669 ==
LOC: ER 15:49 → ED HOLD 22:12 → EDBEDREQ 23:47 → ORTHO 4S 04-14 00:20
PROVIDERS: ADMIT Internal Medicine; ATTEND Internal Medicine
PROC: BW211ZZ Computerized Tomography (CT Scan) of Abdomen and Pelvis using Low Osmolar Contrast (ICD-10-PCS; 2025-04-13)
PROC: 0TBB8ZZ Excision of Bladder, Via Natural or Artificial Opening Endoscopic (ICD-10-PCS; principal; 2025-04-14 10:27)
DX: C67.9 Malignant neoplasm of bladder, unspecified (principal); J98.11 Atelectasis; N17.9 Acute kidney failure, unspecified; K44.9 Diaphragmatic hernia without obstruction or gangrene; K21.9 Gastro-esophageal reflux disease without esophagitis; G25.81 Restless legs syndrome; N32.3 Diverticulum of bladder; N40.0 Benign prostatic hyperplasia without lower urinary tract symptoms; N18.30 Chronic kidney disease, stage 3 unspecified; Z79.899 Other long term (current) drug therapy
CPT/HCPCS: 36415; 71045; 74176; 80048; 80053; 80061; 81001; 82728; 82948; 83036; 83540; 83690; 83735; 84466; 85025; 85610; 85730; 87081; 87088; 93005; 93306; 96374; 97116; 97161; 97530; 99285; A4340; A4355; A4357; A4358; A4618; A5200; G0378; J0690; J1100; J1885; J2003; J2405; J2704; J3010; J3490; J7030; J7120; Q9967